=== PATIENT | male | born 1950 | race Caucasian/White ===

== ENCOUNTER 2021-03-14 15:09 | Emergency (ER) | payer MEDICARE, BC ==
[2021-03-14 15:23] VITALS: BP 143/84; PULSE 90; RESP 18; TEMP 97.6
[2021-03-14] MEDS ORDERED: DIPH,PERTUS(ACELL)TETVAC-LF 0.5 ML VIAL IM ONE (16:28)
[2021-03-14] MEDS ORDERED: BACITRACIN OINT 1 EACH PACKET TOPICAL ONE (16:28)
[2021-03-14] MEDS ORDERED: LIDOCAINE 1% INJ 10MG/ML (20 ML MDV) SQ ONE (16:28)
--- NOTE | 2021-03-14 17:09 | XR ---
EXAMINATION TYPE: XR hand limited LT DATE OF EXAM: 03/14/2021 COMPARISON: NONE HISTORY: Laceration. TECHNIQUE: 2 views FINDINGS: Metacarpals are intact. I see no fracture nor dislocation. There is mild spurring at the IP joint of the thumb. There are no erosions. There is no subluxation. IMPRESSION: Negative left hand exam. No fracture. No evidence of a foreign body.
--- NOTE | 2021-03-14 17:48 | ED ---
Wound/Laceration HPI - General Chief Complaint: Wound/Laceration Stated Complaint: L Finger Injury Time Seen by Provider: 03/14/21 16:23 Source: patient Mode of arrival: ambulatory Limitations: no limitations - History of Present Illness Initial Comments: Patient is a 70-year-old male presenting to the emergency Department with complaints of lacerations to multiple fingers of his left hand. Patient states he was trimming some shrubs when his glove caught on a saw blade causing lacerations to his left second, third, fourth digits. This happened about 1 hour prior to arrival. He states he did go to urgent care who recommended coming into the ER for further evaluation. He denies being on blood thinners. His tetanus vaccine is not up-to-date. His pain is minimal at this time. He has no further complaints. - Related Data Allergies Allergy/AdvReac Type Severity Reaction Status Date / Time codeine AdvReac Nausea & Verified 03/14/21 15:23 Vomiting & Diarrhea Review of Systems ROS Statement: Those systems with pertinent positive or pertinent negative responses have been documented in the HPI. ROS Other: All systems not noted in ROS Statement are negative. Past Medical History Past Medical History: Diabetes Mellitus History of Any Multi-Drug Resistant Organisms: None Reported Additional Past Surgical History / Comment(s): right finger amputation. Past Psychological History: No Psychological Hx Reported Smoking Status: Never smoker Past Alcohol Use History: Rare Past Drug Use History: None Reported General Exam - General Exam Comments Initial Comments: GENERAL: Patient is well-developed and well-nourished. Patient is nontoxic and in no acute distress. HEAD: Atraumatic, normocephalic. EYES: Pupils equal round and reactive to light, extraocular movements intact, sclera anicteric, conjunctiva are normal. Eyelids were unremarkable. ENT: Nares patent, oropharynx clear without exudates. Moist mucous membranes. NECK: Normal range of motion, supple without lymphadenopathy or JVD. LUNGS: Unlabored respirations. Breath sounds clear to auscultation bilaterally and equal. No wheezes rales or rhonchi. HEART: Regular rate and rhythm without murmurs, rubs or gallops. ABDOMEN: Soft, nontender. No guarding, no rebound. No masses appreciated. : Deferred MUSCULOSKELETAL: Normal extremities with adequate strength and normal range of motion, no pitting or edema. No clubbing or cyanosis. Patient has full range of motion of all his fingers on left hand. NEUROLOGICAL: Patient is alert and oriented x 3. Normal speech, normal gait. PSYCH: Normal mood, normal affect. SKIN: Warm, Dry, normal turgor, no rashes. Patient has a small, 0.5 cm laceration through the nail on the left ring finger, there is no active bleeding. Patient has another jagged, 0.5 cm laceration to the nail on the left middle finger. Again no active bleeding. The nailbeds are intact on both of these fingers. Patient has a 1 cm laceration to the dorsal aspect of the left index finger, near the IP joint. There is no active bleeding. He also has a very jagged laceration to the medial aspect of the left index finger, near the nail. This is approximately 1 cm in length. Limitations: no limitations Course Vital Signs 03/14/21 15:19 Temperature 97.6 F Pulse Rate 90 Respiratory 18 Rate Blood Pressure 143/84 O2 Sat by Pulse 95 Oximetry Procedures - Laceration Laceration #1 Consent Obtained: verbal consent Indication: laceration Site: other (Left index finger, dorsal aspect near the IP joint) Size (cm): 1 Description: linear Depth: simple, single layer Anesthetic Used: lidocaine 1% Anesthesia Technique: local infiltration Amount (mls): 2 Pre-repair: irrigated extensively Type of Sutures: nylon Size of Sutures: 5-0 Number of Sutures: 3 Technique: simple, interrupted Patient Tolerated Procedure: well Laceration #2 Consent Obtained: verbal consent Indication: laceration Site: other (Left index finger, medial aspect near the distal end.) Size (cm): 1 Description: avulsion, irregular Depth: simple, single layer Anesthetic Used: lidocaine 1% Anesthesia Technique: local infiltration Amount (mls): 2 Pre-repair: irrigated extensively Type of Sutures: nylon Size of Sutures: 5-0 Number of Sutures: 2 Technique: simple, interrupted Patient Tolerated Procedure: well Medical Decision Making - Medical Decision Making She is a 70-year-old male here for lacerations to the left second, third, fourth digits from a saw happened about an hour prior to arrival. Bleeding is controlled. He is not on blood thinners. We did update his tetanus vaccine today. The lacerations on the left middle and ring fingers are just through the nail, the nail bed is still intact, we just cleaned these and covered with a Band-Aid at this time. Lacerations to the left index finger were repaired, he tolerated procedures well. X-rays reveal no acute fractures. Patient will cont inue to keep areas clean and dry, apply topical antibiotic daily. He is stable for discharge. He will have sutures removed in 7-10 days. He is in agreement with this plan of care. Disposition Clinical Impression: Laceration of left index finger, Laceration of left middle finger with damage to nail, Laceration of left ring finger with damage to nail Disposition: HOME SELF-CARE Condition: Stable Instructions (If sedation given, give patient instructions): Care For Your Stitches (ED) Additional Instructions: Please return to the Emergency Department if symptoms worsen or any other concerns. Keep wounds clean and dry. Apply topical antibiotic at nighttime, keep covered with Band-Aid to avoid snagging the nail. Stitches need to be removed in 7-10 days as discussed. Your tetanus vaccine was updated today. Is patient prescribed a controlled substance at d/c from ED?: No Referrals: None,Stated [Primary Care Provider] - 1-2 days Time of Disposition: 17:48
== END 2021-03-14 18:04 | disposition home or self-care (01) ==
LOC: EC 15:09
DX: S61.313A Laceration without foreign body of left middle finger with damage to nail, initial encounter (principal); S61.315A Laceration without foreign body of left ring finger with damage to nail, initial encounter; E11.9 Type 2 diabetes mellitus without complications; W26.8XXA Contact with other sharp object(s), not elsewhere classified, initial encounter; Y93.H2 Activity, gardening and landscaping
CPT/HCPCS: 73120; 90715; 99283; 12001; 90471; J2001

== ENCOUNTER 2023-12-10 18:09 | Emergency (ER) | payer MEDICARE, BC ==
[2023-12-10 18:20] VITALS: BP 151/81; RESP 16; TEMP 98.4
--- NOTE | 2023-12-10 18:34 | ED ---
SOB HPI - General Source: patient, family, RN notes reviewed Mode of arrival: ambulatory Limitations: no limitations <Joyce Armendariz - Last Filed: 12/10/23 18:32> - General Source: RN notes reviewed, old records reviewed, Caregiver Mode of arrival: ambulatory Limitations: no limitations - History of Present Illness MD Complaint: shortness of breath, cough, chest pain, "asthma attack", anxiety -: days(s) Radiation: back Severity: moderate Severity scale (1-10): 4 Quality: aching, throbbing Consistency: constant Improves With: nothing Worsens With: nothing Context: recent URI, recent illness Associated Symptoms: cough, sputum production Treatments Prior to Arrival: none <Carlos Brooks - Last Filed: 12/23/23 20:40> - General Chief Complaint: Shortness of Breath Stated Complaint: referal - cough Time Seen by Provider: 12/10/23 18:32 - History of Present Illness Initial Comments: Patient is a 72-year-old male presented to ER with chief complaint of a cough. Patient is going on since Thursday. He believes it is now gone to his chest. Patient denies any chest pain, shortness of breath, fevers, chills, night sweats. (Joyce Armendariz) This is a 72-year-old male to the ER for evaluation of persistent cough. Cough which she believes may be related to a pneumonia shortness of breath and distress with cough congestion fevers and chills. No known sick contacts no travel history or other complaints (Carlos Brooks) - Related Data Previous Rx's Medication Instructions Recorded Benzonatate [Tessalon Perles] 100 mg PO TID PRN #15 capsule 12/10/23 Albuterol Sulfate [Albuterol 1 puff PO Q4-6H PRN #8.5 gm 12/19/23 Sulfate Hfa] predniSONE [Deltasone] 60 mg PO DAILY 5 Days #15 tab 12/19/23 Allergies Allergy/AdvReac Type Severity Reaction Status Date / Time codeine AdvReac Nausea & Verified 12/19/23 16:41 Vomiting & Diarrhea Review of Systems ROS Other: All systems not noted in ROS Statement are negative. <Joyce Armendariz - Last Filed: 12/10/23 18:32> ROS Other: All systems not noted in ROS Statement are negative. <Carlos Brooks - Last Filed: 12/23/23 20:40> ROS Statement: Those systems with pertinent positive or pertinent negative responses have been documented in the HPI. Past Medical History Past Medical History: Diabetes Mellitus, Hyperlipidemia, Hypertension History of Any Multi-Drug Resistant Organisms: None Reported Past Surgical History: Orthopedic Surgery Additional Past Surgical History / Comment(s): right finger amputation. Past Psychological History: No Psychological Hx Reported Smoking Status: Never smoker Past Alcohol Use History: Rare Past Drug Use History: None Reported <Joyce Armendariz - Last Filed: 12/10/23 18:32> General Exam Limitations: no limitations <FrantzkrystenJoyce - Last Filed: 12/10/23 18:32> General appearance: alert, in no apparent distress, anxious Head exam: Present: atraumatic, normocephalic, normal inspection Eye exam: Present: normal appearance, PERRL, EOMI. Absent: scleral icterus, conjunctival injection, periorbital swelling ENT exam: Present: normal exam, mucous membranes moist Neck exam: Present: normal inspection. Absent: tenderness, meningismus, lymphadenopathy Respiratory exam: Present: normal lung sounds bilaterally. Absent: respiratory distress, wheezes, rales, rhonchi, stridor Cardiovascular Exam: Present: regular rate, normal rhythm, normal heart sounds. Absent: systolic murmur, diastolic murmur, rubs, gallop, clicks GI/Abdominal exam: Present: soft, normal bowel sounds. Absent: distended, tenderness, guarding, rebound, rigid Extremities exam: Present: normal inspection, full ROM, normal capillary refill. Absent: tenderness, pedal edema, joint swelling, calf tenderness Back exam: Present: normal inspection Neurological exam: Present: alert, oriented X3, CN II-XII intact Psychiatric exam: Present: normal affect, normal mood Skin exam: Present: warm, dry, intact, normal color. Absent: rash <Carlos Brooks - Last Filed: 12/23/23 20:40> - General Exam Comments Initial Comments: Visual Physical Exam Vital signs reviewed General: Well-appearing, nontoxic, no acute distress. Head: Normocephalic, atraumatic Eyes: PERRLA, EOMI ENT: Airway patent Chest: Nonlabored breathing Skin: No visual rash, normal skin tone Neuro: Alert and oriented 3 Musculoskeletal: No gross abnormalities (Joyce Armendariz) Course <Carlos Brooks - Last Filed: 12/23/23 20:40> Vital Signs 12/10/23 12/10/23 12/10/23 18:13 20:43 20:51 Temperature 98.4 F Pulse Rate 82 83 85 Respiratory 16 Rate Blood Pressure 151/81 O2 Sat by Pulse 92 L Oximetry - Reevaluation(s) Reevaluation #1: 12/10/23 Medical records reviewed (Carlos Brooks) Reevaluation #2: 12/10/23 Patient's symptoms are improved (Carlos Brooks) Reevaluation #3: 12/10/23 Patient symptoms are improved patient informed of results and questions answered (Carlos Brooks) Reevaluation #4: Was pt. sent in by a medical professional or institution (, PA, SOLDERING MACHINE OPERATOR [employer]ATIC, urgent care, hospital, or alf...) When possible be specific @ -no Did you speak to anyone other than the patient for history (EMS, parent, family, police, friend...)? What history was obtained from this source @ -no Did you review nursing and triage notes (agree or disagree)? Why? @ -agree Are old charts reviewed (outside hosp., previous admission, EMS record, old EKG, old radiological studies, urgent care reports/EKG's, alf records)? Report findings @ -yes Differential Diagnosis (chest pain, altered mental status, abdominal pain women, abdominal pain men, vaginal bleeding, weakness, fever, dyspnea, syncope, headache, dizziness, GI bleed, back pain, seizure, CVA, palpatations, mental health, musculoskeletal)? @ -prior EKG interpreted by me (3pts min.). @ -yes X-rays interpreted by me (1pt min.). @ -yes negative for acute disease CT interpreted by me (1pt min.). @ -no U/S interpreted by me (1pt. min.). @ -no What testing was considered but not performed or refused? (CT, X-rays, U/S, labs)? Why? @ -none What meds were considered but not given or refused? Why? @ -none Did you discuss the management of the patient with other professionals (professionals i.e. Dr., PA, SOLDERING MACHINE OPERATOR [employer]IC, lab, RT, psych nurse, social work lecturer, customer servicer, teacher, radiation safety officer, corrections caseworker)? Give summary @ -no Was smoking cessation discussed for >3mins.? @ -no Was critical care preformed (if so, how long)? @ -no Were there social determinants of health that impacted care today? How? (Homelessness, low income, unemployed, alcoholism, drug addiction, transportation, low edu. Level, literacy, decrease access to med. care, retirement, rehab)? @ -none Was there de-escalation of care discussed even if they declined (Discuss DNR or withdrawal of care, Hospice)? DNR status @ -no What co-morbidities impacted this encounter? (DM, HTN, Smoking, COPD, CAD, Cancer, CVA, ARF, Chemo, Hep., AIDS, mental health diagnosis, sleep apnea, morbid obesity)? @ -none Was patient admitted / discharged? Hospital course, mention meds given and route, prescriptions, significant lab abnormalities, going to OR and other pertinent info. @ - 72 male to the ER for evaluation of severe shortness of breath with cough and congestion. Significant viral disease and infection. Patient is mild improvement in symptoms here in the ER and can be discharged home Discharge Undiagnosed new problem with uncertain prognosis? @ -no Drug Therapy requiring intensive monitoring for toxicity (Heparin, Nitro, In sulin, Cardizem)? @ -no Were any procedures done? @ -no Diagnosis/symptom? @ -Viral infection upper respiratory function Acute, or Chronic, or Acute on Chronic? @ -Acute Uncomplicated (without systemic symptoms) or Complicated (systemic symptoms)? @ -Complicated Side effects of treatment? @ -no Exacerbation, Progression, or Severe Exacerbation? @ -exacerbation Poses a threat to life or bodily function? How? (Chest pain, [place], ID, pneumonia, PE, COPD, DKA, ARF, appy, cholecystitis, CVA, Diverticulitis, Homicidal, Suicidal, threat to staff... and all critical care pts) @ -yes with extreme of age (Carlos Brooks) Reevaluation #5: Differential Dyspnea: Coronary syndrome, arrhythmia, tamponade, asthma, COPD, pulmonary embolism, pneumonia, pneumothorax, pulmonary effusion, anaphylaxis, diabetic ketoacidosis, flailed chest, pulmonary contusion, diaphragmatic rupture, anemia, neuromuscular, this is not meant to be an all-inclusive list. (Carlos Brooks) Medical Decision Making <Joyce Armendariz - Last Filed: 12/10/23 18:32> - EKG Data -: EKG Interpreted by Me - Radiology Data Radiology results: report reviewed (Chest x-ray is negative for acute disease), image reviewed <Carlos Brooks - Last Filed: 12/23/23 20:40> - Medical Decision Making I performed the quick note portion of the exam. Electronically signed by Joyce Armendariz PA-C (Joyce Armendariz) 72 male to the ER for evaluation of severe shortness of breath with cough and congestion. Significant viral disease and infection. Patient is mild improvement in symptoms here in the ER and can be discharged home (Carlos Brooks) - Lab Data Lab Results 12/10/23 Range/Units 18:19 Influenza Type A (PCR) Not Detected (Not Detectd) Influenza Type B (PCR) Not Detected (Not Detectd) RSV (PCR) Detected A (Not Detectd) SARS-CoV-2 (PCR) Not Detected (Not Detectd) Disposition <Joyce Armendariz - Last Filed: 12/10/23 18:32> Is patient prescribed a controlled substance at d/c from ED?: No Time of Disposition: 20:30 <Carlos Brooks - Last Filed: 12/23/23 20:40> Clinical Impression: RSV (acute bronchiolitis due to respiratory syncytial virus), Viral infection Disposition: HOME SELF-CARE Condition: Good Instructions (If sedation given, give patient instructions): Respiratory Syncytial Virus (ED) Prescriptions: Benzonatate [Tessalon Perles] 100 mg PO TID PRN #15 capsule PRN Reason: Cough Referrals: None,Stated [REFERRING] - 1-2 days
--- NOTE | 2023-12-10 18:53 | XR ---
EXAMINATION TYPE: XR chest 2V DATE OF EXAM: 12/10/2023 6:26 PM CLINICAL INDICATION:Male, 72 years old with history of short breath productive cough; COMPARISON: None TECHNIQUE: XR chest 2V Frontal and lateral views of the chest. FINDINGS: Lungs/Pleura: Scattered subtle reticular and hazy opacities. No evidence of pneumothorax, focal conso lidation or pleural effusion. Pulmonary vascularity: Unremarkable. Heart/mediastinum: Cardiomediastinal silhouette is unremarkable. Musculoskeletal: No acute osseous pathology. Other findings: None IMPRESSION: Subtle scattered opacities which may represent an atypical pneumonia. Correlate for covid 19.
[2023-12-10] MEDS: IPRATROPIUM-ALBUTEROL 3 ML NEB INHALATION STA (20:41)
[2023-12-10] MEDS: DEXAMETHASONE SOD PHOSPHATE 10 MG/ML 1 ML VIAL IM STA (20:44)
[2023-12-10] MEDS: BENZONATATE 100 MG CAP PO STA (20:45)
[2023-12-10 21:22] VITALS: PULSE 85
== END 2023-12-10 21:20 | disposition home or self-care (01) ==
LOC: EC 18:09
DX: J21.0 Acute bronchiolitis due to respiratory syncytial virus (principal); B34.9 Viral infection, unspecified; E11.9 Type 2 diabetes mellitus without complications; I10 Essential (primary) hypertension; Z20.822 Contact with and (suspected) exposure to COVID-19; Z88.5 Allergy status to narcotic agent
CPT/HCPCS: 94640; 87636; 71046; 99285; 96372; J1100

== ENCOUNTER 2023-12-19 16:35 | Emergency (ER) | payer MEDICARE, BC ==
[2023-12-19 17:31] LABS: Basophils # (A) 0.1 k/uL (0-0.2); Basophils % (A) 1 %; Eosinophils # (A) 0.1 k/uL (0-0.7); Eosinophils % (A) 2 %; HCT 42.9 % (39.0-53.0); HGB 14.7 gm/dL (13.0-17.5); Lymphocytes # (A) 2.1 k/uL (1.0-4.8); Lymphocytes % (A) 29 %; MCH 29.2 pg (25.0-35.0); MCHC 34.2 g/dL (31.0-37.0); MCV 85.3 fL (80.0-100.0); Mean Platelet Volume 8.2; Monocytes # (A) 0.4 k/uL (0-1.0); Monocytes % (A) 5 %; Neutrophils # (A) 4.4 k/uL (1.3-7.7); Neutrophils % (A) 61 %; Platelet Count 255 k/uL (150-450); RBC 5.03 m/uL (4.30-5.90); RDW 13.3 % (11.5-15.5); WBC 7.1 k/uL (3.8-10.6)
[2023-12-19 17:40] LABS: ALT 33 U/L (4-49); AST 25 U/L (17-59); African American GFR (CKD) >90 (>60 ml/min/1.73 sqM); Albumin 3.6 g/dL (3.5-5.0); Alkaline Phosphatase 71 U/L (38-126); Anion Gap 6 mmol/L; Blood Urea Nitrogen 28 mg/dL (9-20); Carbon Dioxide 26 mmol/L (22-30); Chloride 107 mmol/L (98-107); Glucose 282 mg/dL (74-99); Magnesium 1.9 mg/dL (1.6-2.3); Non-African American GFR(CKD) >90 (>60 ml/min/1.73 sqM); Partial Thromboplastin Time 22.4 sec (22.0-30.0); Potassium 4.7 mmol/L (3.5-5.1); Prothrombin Time 10.6 sec (10.0-12.5); Sodium 139 mmol/L (137-145); Total Bilirubin 1.2 mg/dL (0.2-1.3); Total Protein 6.3 g/dL (6.3-8.2)
--- NOTE | 2023-12-19 17:47 | XR ---
EXAMINATION TYPE: XR chest 2V DATE OF EXAM: 12/19/2023 COMPARISON: Chest x-ray 9 days ago HISTORY: Difficulty in breathing. TECHNIQUE: Frontal and lateral views of the chest are obtained. FINDINGS: Slightly elevated right hemidiaphragm redemonstrated. There is no suspicious new focal air space opacity, pleural effusion, or pneumothorax seen. Mild chronic parenchymal changes redemonstrat ed bilaterally. The cardiac silhouette size is stable and within normal limits. The osseous struct ures are intact. IMPRESSION: No new acute pulmonary infiltrate.
[2023-12-19 17:49] LABS: NT-Pro-B-Type Natriuretic Pept 55 pg/mL
--- NOTE | 2023-12-19 18:01 | ED ---
General Adult HPI - General Chief complaint: Shortness of Breath Stated complaint: Difficulty breathing-viral pneumonia Time Seen by Provider: 12/19/23 16:43 Source: patient Mode of arrival: ambulatory Limitations: no limitations - History of Present Illness Initial comments: 72-year-old male with history of diabetes, hypertension, hyperlipidemia present ing with chief complaint of shortness of breath. Patient states that he was seen here last week for cough. He was diagnosed with RSV and states he was treated for atypical pneumonia, he has been taking Tessalon Perles and was given a steroid injection and breathing treatment while in the ER. He states that his cough is starting to improve however today it significantly worsened. He states that "it feels like I am breathing in smoke". He is not a smoker. No chest pain. No abdominal pain, nausea, vomiting. No lower extremity swelling. No fevers or chills. - Related Data Previous Rx's Medication Instructions Recorded Benzonatate [Tessalon Perles] 100 mg PO TID PRN #15 capsule 12/10/23 Albuterol Sulfate [Albuterol 1 puff PO Q4-6H PRN #8.5 gm 12/19/23 Sulfate Hfa] predniSONE [Deltasone] 60 mg PO DAILY 5 Days #15 tab 12/19/23 Allergies Allergy/AdvReac Type Severity Reaction Status Date / Time codeine AdvReac Nausea & Verified 12/19/23 16:41 Vomiting & Diarrhea Review of Systems ROS Statement: Those systems with pertinent positive or pertinent negative responses have been documented in the HPI. ROS Other: All systems not noted in ROS Statement are negative. Past Medical History Past Medical History: Diabetes Mellitus, Hyperlipidemia, Hypertension, Pneumonia History of Any Multi-Drug Resistant Organisms: None Reported Past Surgical History: Orthopedic Surgery Additional Past Surgical History / Comment(s): right finger amputation. Past Psychological History: No Psychological Hx Reported Smoking Status: Never smoker Past Alcohol Use History: Rare Past Drug Use History: None Reported General Exam Limitations: no limitations General appearance: alert, in no apparent distress Head exam: Present: atraumatic, normocephalic Eye exam: Present: normal appearance, EOMI Neck exam: Present: normal inspection Respiratory exam: Present: wheezes (Expiratory wheezes). Absent: respiratory distress, rales, rhonchi, stridor Cardiovascular Exam: Present: regular rate, normal rhythm, normal heart sounds. Absent: systolic murmur, diastolic murmur, rubs, gallop, clicks Extremities exam: Absent: pedal edema Neurological exam: Present: alert, oriented X3 Psychiatric exam: Present: normal affect, normal mood Skin exam: Present: warm, dry Course Vital Signs 12/19/23 12/19/23 12/19/23 16:38 18:05 18:18 Temperature 98.6 F Pulse Rate 68 66 70 Respiratory 22 20 Rate Blood Pressure 158/75 126/54 O2 Sat by Pulse 92 L 96 Oximetry 12/19/23 12/19/23 12/19/23 18:31 19:48 20:00 Temperature Pulse Rate 66 65 70 Respiratory 20 Rate Blood Pressure 141/71 O2 Sat by Pulse 97 Oximetry 12/19/23 12/19/23 12/19/23 20:03 21:00 21:21 Temperature 98.1 F Pulse Rate 68 69 72 Respiratory 16 20 Rate Blood Pressure 125/52 143/55 O2 Sat by Pulse 94 L 92 L Oximetry Medical Decision Making - Medical Decision Making Initial EKG obtained at 1705 shows evidence of second-degree type I heart block. Ventricular rate 56. QRS 105. QT 434. QTc 426. Left axis deviation. Repeat EKG obtained at 2050 shows sinus rhythm with first-degree AV block. Ventricular rate 63. IA interval 271. QRS 106. QT 418. QTc 425. Was pt. sent in by a medical professional or institution ([facility], GROUP CONTRACT ANALYST, urgent care, hospital, or long-term...) When possible be specific @ -No Did you speak to anyone other than the patient for history (EMS, parent, family, police, friend...)? What history was obtained from this source @ -No Did you review nursing and triage notes (agree or disagree)? Why? @ -I reviewed and agree with nursing and triage notes Were old charts reviewed (outside hosp., previous admission, EMS record, old EKG, old radiological studies, urgent care reports/EKG's, long-term records)? Report findings @ -Recent ER visit is reviewed Differential Diagnosis (chest pain, altered mental status, abdominal pain women, abdominal pain men, vaginal bleeding, weakness, fever, dyspnea, syncope, headache, dizziness, GI bleed, back pain, seizure, CVA, palpatations, mental health, musculoskeletal)? @ -MDM Differential Dyspnea: Coronary syndrome, arrhythmia, tamponade, asthma, COPD, pulmonary embolism, pneumonia, pneumothorax, pulmonary effusion, anaphylaxis, diabetic ketoacidosis, flailed chest, pulmonary contusion, diaphragmatic rupture, anemia, neuromuscular this is not meant to be an all-inclusive list. EKG interpreted by me (3pts min.). @ -As above X-rays interpreted by me (1pt min.). @ -X-ray shows no new acute pulmonary infiltrate CT interpreted by me (1pt min.). @ -None done U/S interpreted by me (1pt. min.). @ -None done What testing was considered but not performed or refused? (CT, X-rays, U/S, la bs)? Why? @ -None What meds were considered but not given or refused? Why? @ -None Did you discuss the management of the patient with other professionals (professionals i.e. , PA, GROUP CONTRACT ANALYST, lab, RT, psych nurse, social service director, audiovisual technician, teacher, sea air land officer, case advocate)? Give summary @ -No Was smoking cessation discussed for >3mins.? @ -No Was critical care preformed (if so, how long)? @ -No Were there social determinants of health that impacted care today? How? (Homelessness, low income, unemployed, alcoholism, drug addiction, transportation, low edu. Level, literacy, decrease access to med. care, usp, rehab)? @ -No Was there de-escalation of care discussed even if they declined (Discuss DNR or withdrawal of care, Hospice)? DNR status @ -No What co-morbidities impacted this encounter? (DM, HTN, Smoking, COPD, CAD, Cancer, CVA, ARF, Chemo, Hep., AIDS, mental health diagnosis, sleep apnea, morbid obesity)? @ -None Was patient admitted / discharged? Hospital course, mention meds given and route, prescriptions, significant lab abnormalities, going to OR and other pertinent info. @ -72-year-old male presenting with chief complaint of dyspnea. He recently had RSV and states he was treated for viral pneumonia with Tessalon Perles at home and received a steroid shot and breathing treatment in the ER. States that today he had worsening cough and shortness of breath. No history of COPD or asthma. He is not a smoker. History and physical exam are conducted. There are expiratory wheezes heard on auscultation. Initial EKG shows evidence of Mobitz type I heart block. No leukocytosis or anemia. Negative D-dimer and troponin. BNP 55. Chest x-ray shows no new acute pulmonary infiltrate. Repeat EKG shows evidence of first-degree heart block. Patient was given 2 DuoNeb breathing treatments and Solu-Medrol 125 mg. On reassessment he reports that his symptoms have resolved and he feels much better. He would like to be discharged home. Oxygen saturation is 93% on room air. Patient is showing no increased respiratory effort or signs of distress. He will be sent in albuterol inhaler and prednisone. He is educated on alarm symptoms that should prompt immediate reevaluation. He is instructed to follow-up with cardiology regarding abnormal EKG. Follow-up with PCP. Report back to ER with any new or worsening symptoms. Discussed return parameters and answered all questions. Patient conveyed verbal understanding and agreed to the plan. I discussed this case in detail with my attending Dr. Jones Undiagnosed new problem with uncertain prognosis? @ -No Drug Therapy requiring intensive monitoring for toxicity (Heparin, Nitro, Insulin, Cardizem)? @ -No Were any procedures done? @ -No Diagnosis/symptom? @ -Reactive airway, heart block Acute, or Chronic, or Acute on Chronic? @ -Acute Uncomplicated (without systemic symptoms) or Complicated (systemic symptoms)? @ -Uncomplicated Side effects of treatment? @ -No Exacerbation, Progression, or Severe Exacerbation? @ -No Poses a threat to life or bodily function? How? (Chest pain, USA, MA, pneumonia, PE, COPD, DKA, ARF, appy, cholecystitis, CVA, Diverticulitis, Homicidal, Suicidal, threat to staff... and all critical care pts) @ -Progression of heart block may be dangerous, which is why I stressed the importance of following up with cardiology to the patient. - Lab Data Result diagrams: 12/19/23 17:06 12/19/23 17:06 Lab Results 12/19/23 12/19/23 12/19/23 Range/Units 17:06 17:06 17:06 WBC 7.1 (3.8-10.6) k/uL RBC 5.03 (4.30-5.90) m/uL Hgb 14.7 (13.0-17.5) gm/dL Hct 42.9 (39.0-53.0) % MCV 85.3 (80.0-100.0) fL MCH 29.2 (25.0-35.0) pg MCHC 34.2 (31.0-37.0) g/dL RDW 13.3 (11.5-15.5) % Plt Count 255 (150-450) k/uL MPV 8.2 Neutrophils % 61 % Lymphocytes % 29 % Monocytes % 5 % Eosinophils % 2 % Basophils % 1 % Neutrophils # 4.4 (1.3-7.7) k/uL Lymphocytes # 2.1 (1.0-4.8) k/uL Monocytes # 0.4 (0-1.0) k/uL Eosinophils # 0.1 (0-0.7) k/uL Basophils # 0.1 (0-0.2) k/uL PT 10.6 (10.0-12.5) sec INR 1.0 (<1.2) APTT 22.4 (22.0-30.0) sec D-Dimer (<0.60) mg/L FEU Sodium 139 (137-145) mmol/L Potassium 4.7 (3.5-5.1) mmol/L Chloride 107 (98-107) mmol/L Carbon Dioxide 26 (22-30) mmol/L Anion Gap 6 mmol/L BUN 28 H (9-20) mg/dL Creatinine 0.74 (0.66-1.25) mg/dL Est GFR (CKD-EPI)AfAm >90 (>60 ml/min/1.73 sqM) Est GFR (CKD-EPI)NonAf >90 (>60 ml/min/1.73 sqM) Glucose 282 H (74-99) mg/dL Plasma Lactic Acid Sam (0.7-2.0) mmol/L Calcium 9.0 (8.4-10.2) mg/dL Magnesium 1.9 (1.6-2.3) mg/dL Total Bilirubin 1.2 (0.2-1.3) mg/dL AST 25 (17-59) U/L ALT 33 (4-49) U/L Alkaline Phosphatase 71 (38-126) U/L Troponin I (0.000-0.034) ng/mL NT-Pro-B Natriuret Pep 55 pg/mL Total Protein 6.3 (6.3-8.2) g/dL Albumin 3.6 (3.5-5.0) g/dL Influenza Type A (PCR) (Not Detectd) Influenza Type B (PCR) (Not Detectd) RSV (PCR) (Not Detectd) SARS-CoV-2 (PCR) (Not Detectd) 12/19/23 12/19/23 12/19/23 Range/Units 17:06 17:06 17:06 WBC (3.8-10.6) k/uL RBC (4.30-5.90) m/uL Hgb (13.0-17.5) gm/dL Hct (39.0-53.0) % MCV (80.0-100.0) fL MCH (25.0-35.0) pg MCHC (31.0-37.0) g/dL RDW (11.5-15.5) % Plt Count (150-450) k/uL MPV Neutrophils % % Lymphocytes % % Monocytes % % Eosinophils % % Basophils % % Neutrophils # (1.3-7.7) k/uL Lymphocytes # (1.0-4.8) k/uL Monocytes # (0-1.0) k/uL Eosinophils # (0-0.7) k/uL Basophils # (0-0.2) k/uL PT (10.0-12.5) sec INR (<1.2) APTT (22.0-30.0) sec D-Dimer 0.34 (<0.60) mg/L FEU Sodium (137-145) mmol/L Potassium (3.5-5.1) mmol/L Chloride (98-107) mmol/L Carbon Dioxide (22-30) mmol/L Anion Gap mmol/L BUN (9-20) mg/dL Creatinine (0.66-1.25) mg/dL Est GFR (CKD-EPI)AfAm (>60 ml/min/1.73 sqM) Est GFR (CKD-EPI)NonAf (>60 ml/min/1.73 sqM) Glucose (74-99) mg/dL Plasma Lactic Acid Sam 1.1 (0.7-2.0) mmol/L Calcium (8.4-10.2) mg/dL Magnesium (1.6-2.3) mg/dL Total Bilirubin (0.2-1.3) mg/dL AST (17-59) U/L ALT (4-49) U/L Alkaline Phosphatase (38-126) U/L Troponin I <0.012 (0.000-0.034) ng/mL NT-Pro-B Natriuret Pep pg/mL Total Protein (6.3-8.2) g/dL Albumin (3.5-5.0) g/dL Influenza Type A (PCR) (Not Detectd) Influenza Type B (PCR) (Not Detectd) RSV (PCR) (Not Detectd) SARS-CoV-2 (PCR) (Not Detectd) 12/19/23 Range/Units 17:19 WBC (3.8-10.6) k/uL RBC (4.30-5.90) m/uL Hgb (13.0-17.5) gm/dL Hct (39.0-53.0) % MCV (80.0-100.0) fL MCH (25.0-35.0) pg MCHC (31.0-37.0) g/dL RDW (11.5-15.5) % Plt Count (150-450) k/uL MPV Neutrophils % % Lymphocytes % % Monocytes % % Eosinophils % % Basophils % % Neutrophils # (1.3-7.7) k/uL Lymphocytes # (1.0-4.8) k/uL Monocytes # (0-1.0) k/uL Eosinophils # (0-0.7) k/uL Basophils # (0-0.2) k/uL PT (10.0-12.5) sec INR (<1.2) APTT (22.0-30.0) sec D-Dimer (<0.60) mg/L FEU Sodium (137-145) mmol/L Potassium (3.5-5.1) mmol/L Chloride (98-107) mmol/L Carbon Dioxide (22-30) mmol/L Anion Gap mmol/L BUN (9-20) mg/dL Creatinine (0.66-1.25) mg/dL Est GFR (CKD-EPI)AfAm (>60 ml/min/1.73 sqM) Est GFR (CKD-EPI)NonAf (>60 ml/min/1.73 sqM) Glucose (74-99) mg/dL Plasma Lactic Acid Sam (0.7-2.0) mmol/L Calcium (8.4-10.2) mg/dL Magnesium (1.6-2.3) mg/dL Total Bilirubin (0.2-1.3) mg/dL AST (17-59) U/L ALT (4-49) U/L Alkaline Phosphatase (38-126) U/L Troponin I (0.000-0.034) ng/mL NT-Pro-B Natriuret Pep pg/mL Total Protein (6.3-8.2) g/dL Albumin (3.5-5.0) g/dL Influenza Type A (PCR) Not Detected (Not Detectd) Influenza Type B (PCR) Not Detected (Not Detectd) RSV (PCR) Not Detected (Not Detectd) SARS-CoV-2 (PCR) Not Detected (Not Detectd) Disposition Clinical Impression: RAD (reactive airway disease), AV block Disposition: HOME SELF-CARE Condition: Fair Instructions (If sedation given, give patient instructions): Heart Block (ED), Dyspnea (ED) Additional Instructions: Follow-up with PCP and cardiology. Report back to ER with any new or worsening Prescriptions: Albuterol Sulfate [Albuterol Sulfate Hfa] 1 puff PO Q4-6H PRN #8.5 gm PRN Reason: Shortness Of Breath predniSONE [Deltasone] 60 mg PO DAILY 5 Days #15 tab Is patient prescribed a controlled substance at d/c from ED?: No Referrals: Guru Dinh DO [Primary Care Provider] - 1-2 days Stanton Naqvi MD [STAFF PHYSICIAN] - 1-2 days Time of Disposition: 21:06
[2023-12-19] MEDS: IPRATROPIUM-ALBUTEROL 3 ML NEB INHALATION STA ×2 (18:18→19:47)
[2023-12-19 18:28] VITALS: RESP 20
[2023-12-19] MEDS: methylPREDNISolone SOD SUCCI 125 MG/2 ML VIAL IV ONE (19:40)
[2023-12-19 21:40] VITALS: BP 143/55; PULSE 72; TEMP 98.1
== END 2023-12-19 21:39 | disposition home or self-care (01) ==
LOC: EC 16:35
DX: J45.909 Unspecified asthma, uncomplicated (principal); I45.10 Unspecified right bundle-branch block; I44.0 Atrioventricular block, first degree; E11.9 Type 2 diabetes mellitus without complications; I10 Essential (primary) hypertension; Z88.5 Allergy status to narcotic agent; Z20.822 Contact with and (suspected) exposure to COVID-19
CPT/HCPCS: 99285; 36415; 94640 ×2; 93005; 85379; 83880; 80053; 83605; 83735; 84484; 85025; 85610; 85730; 87636; 71046; 96374; J2930

== ENCOUNTER → 2024-01-21 | Outpatient (CLI) | payer MEDICARE, BC ==
--- NOTE | 2024-01-22 11:05 | CA ---
Transthoracic Echo Report Name: Tayo Ann Age: 73 Gender: M : 1950 Exam Date: 01/21/2024 14:07 Exam Location: [place] [facility] Ht (in): 70 Wt (lb): 260 Ordering Physician: Guru Dinh DO Attending/Referring Phys: Police Artist Rochelle Bowman RDCS Procedure CPT: Indications: R01.1 CARDIAC MURMUR, UNSPECIFIED Cardiac Hx: Technical Quality: Technically difficult study Contrast 1: Definity Total Dose (mL): 2 Contrast 2: Total Dose (mL): MEASUREMENTS (Male / Female) Normal Values 2D ECHO LV Diastolic Diameter PLAX 5.6 cm 4.2 - 5.9 / 3.9 - 5.3 cm LV Systolic Diameter PLAX 3.5 cm IVS Diastolic Thickness 1.3 cm 0.6 - 1.0 / 0.6 - 0.9 cm LVPW Diastolic Thickness 1.4 cm 0.6 - 1.0 / 0.6 - 0.9 cm LV Relative Wall Thickness 0.5 RV Internal Dim ED PLAX 4.1 cm LVOT Diameter 2.3 cm LA Systolic Diameter LX 4.5 cm 3.0 - 4.0 / 2.7 - 3.8 cm LV Diastolic Volume MOD BP 68.2 cm??? 67 - 155 / 56 - 104 cm??? LV Systolic Volume MOD BP 11.8 cm??? 22 - 58 / 19 - 49 cm??? LV Ejection Fraction MOD BP 82.7 % >= 55 % LV Cardiac Index MOD BP 1535.9 cm???/min???m??? LV Diastolic Volume MOD 4C 68.6 cm??? LV Systolic Volume MOD 4C 11.4 cm??? LV Ejection Fraction MOD 4C 83.4 % LV Cardiac Index MOD 4C 1557.3 cm???/min???m??? LV Diastolic Length 4C 7.0 cm LV Systolic Length 4C 5.4 cm LV Diastolic Volume MOD 2C 67.0 cm??? LV Systolic Volume MOD 2C 12.8 cm??? LV Ejection Fraction MOD 2C 80.9 % LV Cardiac Index MOD 2C 1474.4 cm???/min???m??? LV Diastolic Length 2C 7.3 cm LV Systolic Length 2C 5.6 cm LA Volume 86.6 cm??? 18 - 58 / 22 - 52 cm??? LA Volume Index 35.2 cm???/m??? 16 - 28 cm???/m??? M-MODE Aortic Root Diameter MM 3.1 cm MV E Point Septal Separation 0.5 cm DOPPLER AV Peak Velocity 319.5 cm/s AV Peak Gradient 40.8 mmHg AV Mean Velocity 227.0 cm/s AV Mean Gradient 23.0 mmHg AV Velocity Time Integral 78.3 cm AI Peak Velocity 334.9 cm/s AI Peak Gradient 44.9 mmHg AI Pressure Half Time 1082.0 ms LVOT Peak Velocity 128.5 cm/s LVOT Peak Gradient 6.6 mmHg AV Area Cont Eq pk 1.7 cm??? MV Area PHT 2.5 cm??? Mitral E Point Velocity 84.4 cm/s Mitral A Point Velocity 87.0 cm/s Mitral E to A Ratio 1.0 MV Deceleration Time 304.0 ms TR Peak Velocity 244.4 cm/s TR Peak Gradient 23.9 mmHg Right Ventricular Systolic Press 28.9 mmHg FINDINGS Left Ventricle Left ventricular ejection fraction is estimated at 55-60 %. Left ventricular cavity size normal. Moderate concentric left ventricular hypertrophy. Normal left ventricular wall motion. Right Ventricle Severe right ventricular dilatation. Right ventricular systolic pressure within normal limits. Right Atrium Normal right atrial size. Left Atrium Mildly increased left atrial diameter. Moderately increased left atrial volume. Mildly increased left atrial area. Mitral Valve Mitral valve thickened. Mild thickening/calcification of the anterior mitral valve leaflet. Moderate thickening/calcification of the posterior mitral valve leaflet. Moderate mitral annular calcification. Mild to moderate mitral regurgitation. Aortic Valve Aortic valve sclerosis. Moderate aortic stenosis with a peak gradient of 41 mmHg and a mean gradient of 23 mmHg. [id number] aortic regurgitation. Tricuspid Valve Structurally normal tricuspid valve. Mild tricuspid regurgitation. Pulmonic Valve Structurally normal pulmonic valve. No pulmonic regurgitation. Pericardium No pericardial effusion. Aorta Normal size aortic root and proximal ascending aorta. CONCLUSIONS Technically difficult study for interpretation Normal LV systolic function Thickened mitral valve up her at this was mild to moderate MR Aortic sclerosis with moderate stenosis and [id number] insufficiency Previewed by: Dr. Stanton Naqvi MD (Electronically Signed) Final Date: 22 January 2024 11:03
== END | disposition home or self-care (01) ==
LOC: RADECHMAIN 14:03
PROVIDERS: ATTEND Internal Medicine
DX: R01.1 Cardiac murmur, unspecified (principal)
CPT/HCPCS: C8929; Q9957; 93306